=== PATIENT | female | born 1995 | race Caucasian/White ===

== ENCOUNTER → 2023-03-09 10:30 | Outpatient (CLI) | payer OTHER, SELFPAY ==
[2023-03-09 12:46] LABS: HCG Quantitative /Beta subunit 102.3 mIU/mL
== END ==
PROVIDERS: Referring Provider Obstetrics & Gynecology; Visit Provider Obstetrics & Gynecology
DX: O26.859 Spotting complicating pregnancy, unspecified trimester (principal); Z3A.00 Weeks of gestation of pregnancy not specified
CPT/HCPCS: 36415; 84702

== ENCOUNTER → 2023-03-11 10:11 | Outpatient (CLI) | payer OTHER, SELFPAY ==
[2023-03-11 11:57] LABS: HCG Quantitative /Beta subunit 40.7 mIU/mL
== END ==
PROVIDERS: Referring Provider Obstetrics & Gynecology; Visit Provider Obstetrics & Gynecology
DX: O26.859 Spotting complicating pregnancy, unspecified trimester (principal); Z3A.00 Weeks of gestation of pregnancy not specified
CPT/HCPCS: 36415; 84702

== ENCOUNTER → 2023-04-24 09:26 | Outpatient (CLI) | payer OTHER, SELFPAY ==
[2023-04-24 11:07] LABS: Progesterone, Total 2.01 ng/mL
[2023-04-24 11:10] LABS: Free T4, Direct Thyroxine 1.43 ng/dL (0.78-2.19)
[2023-04-24 11:24] LABS: Thyroid Stimulating Hormone 0.849 uIU/mL (0.47-4.68)
[2023-04-28 07:26] LABS: Dilute Russell Viper Venom 39.2 sec (0.0-47.0); Lupus Reflex Interpretation Comment: (.); PTT-LA 42.3 sec (0.0-43.5)
[2023-05-13 14:13] LABS: Cardiolipin IgA Negative (.)
== END ==
PROVIDERS: Referring Provider Obstetrics & Gynecology; Visit Provider Obstetrics & Gynecology
DX: N96 Recurrent pregnancy loss (principal)
CPT/HCPCS: 36415; 81240; 81241; 83520; 84144; 84439; 84443; 85598; 85613; 86147; 86148

== ENCOUNTER 2023-07-07 09:13 | Emergency (ER) | payer OTHER, SELFPAY ==
[2023-07-07 09:22] VITALS: BP 114/73; PULSE 72; RESP 14; TEMP 36.5; O2SAT 99; BMI 29.0
[2023-07-07 09:47] LABS: Add Manual Diff / Slide Review NO; Basophils Absolute Auto 0 /uL (0-100); Basophils Percent Auto 0.3 % (0-2); Eosinophils Absolute Auto 200 /uL (0-450); Eosinophils Percent Auto 2.5 % (2-4); Hematocrit 38.8 % (36-46); Hemoglobin 13.5 g/dL (12.0-16.0); Lymphocytes Absolute Auto 1500 /uL (1100-4500); Lymphocytes Percent Auto 16.6 % (25-40); Mean Corpuscular HGB Conc 34.7 % (30-36); Mean Corpuscular Hemoglobin 29.7 PG (26-34); Mean Corpuscular Volume 85.8 fL (80-100); Monocytes Absolute Auto 500 /uL (0-900); Monocytes Percent Auto 5.6 % (3-14); Neutrophils Absolute Auto 6900 /uL (1500-7000); Platelet Count 263 X10^3/uL (150-400); Red Blood Cell Count 4.53 X10^6/uL (4.0-5.2); Red Cell Distribution Width 13.5 % (11.6-14.8); White Blood Cell Count 9.3 X10^3/uL (4.5-11.0)
[2023-07-07] MEDS: SODIUM CHLORIDE 0.9% 1,000 ML 1000 ML IV ×2 (09:49→10:35)
[2023-07-07 09:53] LABS: Alanine Aminotransferase 42 IU/L (<35); Albumin 4.2 g/dL (3.5-5.0); Albumin Globulin Ratio 1.3 (1.0-2.8); Alkaline Phosphatase 71 U/L (38-126); Aspartate Aminotransferase 32 IU/L (14-36); BUN Creatinine Ratio 13.4 (6-22); Bilirubin Total 0.9 mg/dL (0.2-1.3); Blood Urea Nitrogen 9 mg/dL (7-17); Calcium 8.9 mg/dL (8.4-10.2); Carbon Dioxide 22 mmol/L (22-32); Chloride 104 mmol/L (98-107); Estimated Glomerular Filt Rate > 60 mL/min (>60); Globulin 3.3 g/dL (1.7-4.1); Glucose 89 mg/dL (70-100); HEMOLYSIS 28 (0-50); Lipase 53 U/L (23-300); Sodium 135 mmol/L (137-145); Total Protein 7.5 g/dL (6.3-8.2)
[2023-07-07] MEDS: ONDANSETRON 4 MG/2 ML INJ IV (09:59)
[2023-07-07 11:30] LABS: Urine Volume 10mL (spun)
[2023-07-07 11:32] LABS: Bacteria Urine None Seen; Culture Indicated Urine Specimen Cultured; Mucus Urine 3+ (Negative); RBC Urine None Seen (0-5/HPF); Squamous Epithelial Cell Urine 5-10 /HPF (0-5/HPF); WBC Urine 1-5/HPF (0-5/HPF)
--- NOTE | 2023-07-07 11:43 | ED_ITS ---
HPI - Nausea/Vomiting/Diarrhea <Cher Bolaños PA-C - Last Filed: 07/07/23 11:49> General Chief complaint: Nausea/Vomiting/Diarrhea Stated complaint: 8.5 weeks/states needs fluids Time Seen by Provider: 07/07/23 09:40 Source: patient Mode of arrival: Ambulatory History of Present Illness HPI Narrative: 27-year-old G4, P1 female presents to the ED with persistent vomiting and unable to keep down fluids during . Patient is 8 weeks , unable to keep down any fluids or solids due to the nausea and vomiting. Patient also endorses some lightheadedness. She is being managed by OBGYN Dr. Rojas who is aware of the hyperemesis. Patient has been taking Unisom, B6, Reglan, promethazine at home with minimal relief. Patient was able to dock with Dr. Rojas's office today while in the ED, and Dr. Rojas recommends trialing rectal suppositories of promethazine. Patient denies fever, chills, chest pain, shortness of breath, vaginal bleeding, vaginal discharge, abdominal pain, dysuria, pelvic cramping, dizziness, syncope. Related Data Home Medications Medication Instructions Recorded Confirmed vits [id number] fum tab PO DAILY 04/07/23 06/29/23 28 mg iron-folic acid 800 mcg tablet (Classic ) Previous Rx's Medication Instructions Recorded ondansetron 4 mg disintegrating 4 mg PO Q8H PRN nausea and 06/29/23 tablet vomiting #20 tabs promethazine 12.5 mg tablet 12.5 mg PO Q6H PRN nausea and 06/29/23 vomiting #20 tabs progesterone micronized 200 mg 200 mg PO BEDTIME #30 caps 07/01/23 capsule (Prometrium) promethazine 12.5 mg rectal 12.5 mg ME Q6H PRN nausea and 07/07/23 suppository vomiting #12 ea Allergies Allergy/AdvReac Type Severity Reaction Status Date / Time No Known Drug Allergies Allergy Verified 07/07/23 09:26 Review of Systems <Cher Bolaños PA-C - Last Filed: 07/07/23 11:49> Constitutional Constitutional: Denies chills, Denies fatigue, Denies fever(s), Denies frequent falls, Denies lethargy and Denies weakness Eyes Eyes: Denies change in vision, Denies eye discharge, Denies irritation and Denies loss of vision ENT Ears, Nose, Mouth, and Throat: Denies change in voice, Denies dizziness, Denies neck pain, Denies sore throat and Denies throat swelling Cardiovascular Cardiovascular: Denies chest pain, Denies irregular heart rhythm, Reports lightheadedness, Denies palpitations, Denies dyspnea, Denies dyspnea on exertion and Denies orthopnea Respiratory Respiratory: Denies cough, Denies dyspnea, Denies dyspnea on exertion and Denies wheezing Gastrointestinal Gastrointestinal: Denies abdominal pain, Denies change in bowel habits, Denies diarrhea, Reports nausea and Reports vomiting Musculoskeletal Musculoskeletal: Denies neck pain and Denies numbness Integumentary/Breasts Skin/Breast: Denies pruritus, Denies erythema, Denies rash and Denies wounds Neurologic Neurologic: Denies behavioral changes, Denies confusion, Denies dizziness, Denies frequent falls, Denies loss of vision, Denies numbness and Denies weakness Psychiatric Psychiatric: Denies anxiety, Denies behavioral changes, Denies confusion, Denies depression, Denies homicidal ideation and Denies suicidal ideation Endocrine Endocrine: Denies fatigue, Denies flushing and Denies palpitations Hematologic/Lymphatic Hematologic/Lymphatic: Denies easy bruising Allergic/Immunologic Allergic/Immunologic: Denies urticaria, Denies throat swelling and Denies wheezing Patient History <Cher Bolaños PA-C - Last Filed: 07/07/23 11:49> Medical History (Updated 07/07/23 @ 11:42 by Cher Bolaños PA-C) Anxiety Arm injury Arm fracture, left (~2019) Interstitial cystitis Hyperemesis gravidarum Ovarian cyst Surgical History (Updated 06/29/23 @ 10:09 by Diane Ceja, RN) History of cystoscopy History of skin surgery [place] teeth extracted Family History (Updated 06/29/23 @ 10:15 by Diane Ceja, RN) Grandmother Lung cancer Grandfather Lung cancer Aunt Colorectal cancer Aunt Congenital heart anomaly Multiple organ failure Family/Other Oral cancer Family/Other Diabetes mellitus Family/Other Hypertension Anxiety Mother Hypothyroidism Uterine fibroid Grandmother Hypothyroidism Uterine fibroid Grandfather Alcoholism Skin cancer Family/Other Thyroid cancer Hyperthyroidism Social History marital status: number of children: 1 household members: spouse and children lives independently: Yes caregiver/support person: Yes housing: house pets and animals: Yes (dogs) education level: college (bachelor's) occupational status: employed (works from home) current occupational exposures/hazards: No special papa needs: No travel history: over 6 months ago seatbelt use: always water heater temp set < 120 deg: Yes working smoke detector in home: Yes fire extinguisher in home: No carbon monox detector in home: Yes firearms in home: No do you feel safe at home: Yes Smoking Status: Never smoker second hand exposure: No alcohol intake: former (occasionally when not ) substance use type: marijuana (in college, not recently) during the past year weight has: other (weight has fluctuated a lot since 1st ) well-balanced diet: daily or most days daily servings fruits/ve or more times/day caffeine: Yes (12 oz drip coffee in AM (not since 1st trimester N/V has started)) Type(s) of exercise: walking, aerobic and yoga Smoking Status: Never smoker Substance Use Type: does not use Exam <Cher Bolaños PA-C - Last Filed: 07/07/23 11:49> Narrative Exam Narrative: Const General:?cooperative, healthy appearing and comfortable [facility] Head:?normal to inspection Ears:?hearing grossly normal bilaterally Nose:?external nose normal Face and sinus:?normal facial exam and sinuses nontender Mouth:?oral mucosae normal Throat:?posterior oropharynx normal Eyes General:?appearance normal, both eyes and all related structures Neck Neck:?normal visual inspection and no lymphadenopathy noted Resp Effort & Inspection:?normal respiratory effort Auscultation:?clear to auscultation bilaterally Cardio Rate:?regular rate Rhythm:?regular rhythm Neuro General:?patient alert, patient awake and patient oriented x3 Initial Vital Signs Initial Vital Signs: Vital Signs Temperature 97.7 F 07/07/23 09:22 Pulse Rate 72 07/07/23 09:22 Respiratory Rate 14 07/07/23 09:22 Blood Pressure 114/73 07/07/23 09:22 Pulse Oximetry 99 07/07/23 09:22 Oxygen Delivery Method Room Air 07/07/23 09:22 <Vinay Mcdaniel MD - Last Filed: 07/07/23 19:22> Initial Vital Signs Initial Vital Signs: Vital Signs Temperature 97.7 F 07/07/23 09:22 Pulse Rate 72 07/07/23 09:22 Respiratory Rate 14 07/07/23 09:22 Blood Pressure 114/73 07/07/23 09:22 Pulse Oximetry 99 07/07/23 09:22 Oxygen Delivery Method Room Air 07/07/23 09:22 Course <Cher Bolaños PA-C - Last Filed: 07/07/23 11:49> Orders Ordered: ED Orders 07/07/23 11:28 Urine Culture Stat Urine Microscopic Stat Discontinued Medications Sodium Chloride (Normal Saline 0.9%) 1,000 mls @ 1,000 mls/hr IV BOLUS ONE Stop: 07/07/23 10:37 Last Infusion: 07/07/23 10:34 Dose: Infused Documented By: Admin: 07/07/23 09:49 Dose: 1,000 mls/hr Documented By: REMIGIO Sodium Chloride (Normal Saline 0.9%) 1,000 mls @ 1,000 mls/hr IV BOLUS ONE Stop: 07/07/23 11:31 Last Infusion: 07/07/23 11:13 Dose: Infused Documented By: Admin: 07/07/23 10:35 Dose: 1,000 mls/hr Documented By: WAGNER Ondansetron HCl (Ondansetron 4 Mg/2 Ml Inj) 4 mg IV NOW PRN PRN Reason: Nausea And Vomiting Last Admin: 07/07/23 09:59 Dose: 4 mg Documented By: WAGNER Vital Signs Vital signs: Vital Signs - 8 hr 07/07/23 11:50 Pulse Rate 59 L Respiratory Rate 14 Blood Pressure 117/62 <Vinay Mcdaniel MD - Last Filed: 07/07/23 19:22> Orders Ordered: ED Orders 07/07/23 11:28 Urine Culture Stat Urine Microscopic Stat Discontinued Medications Sodium Chloride (Normal Saline 0.9%) 1,000 mls @ 1,000 mls/hr IV BOLUS ONE Stop: 07/07/23 10:37 Last Infusion: 07/07/23 10:34 Dose: Infused Documented By: Admin: 07/07/23 09:49 Dose: 1,000 mls/hr Documented By: REMIGIO Sodium Chloride (Normal Saline 0.9%) 1,000 mls @ 1,000 mls/hr IV BOLUS ONE Stop: 07/07/23 11:31 Last Infusion: 07/07/23 11:13 Dose: Infused Documented By: Admin: 07/07/23 10:35 Dose: 1,000 mls/hr Documented By: WAGNER Ondansetron HCl (Ondansetron 4 Mg/2 Ml Inj) 4 mg IV NOW PRN PRN Reason: Nausea And Vomiting Last Admin: 07/07/23 09:59 Dose: 4 mg Documented By: WAGNER Vital Signs Vital signs: Vital Signs - 8 hr 07/07/23 11:50 Pulse Rate 59 L Respiratory Rate 14 Blood Pressure 117/62 MDM - Nausea/Vomiting/Diarrhea <Cher Bolaños PA-C - Last Filed: 07/07/23 11:49> Lab Data 07/07/23 09:30 07/07/23 09:30 Labs: Lab Results 07/07/23 07/07/23 Range/Units 09:30 11:28 WBC 9.3 (4.5-11.0) X10^3/uL RBC 4.53 (4.0-5.2) X10^6/uL Hgb 13.5 (12.0-16.0) g/dL Hct 38.8 (36-46) % MCV 85.8 (80-100) fL MCH 29.7 (26-34) PG MCHC 34.7 (30-36) % RDW 13.5 (11.6-14.8) % Plt Count 263 (150-400) X10^3/uL Neut % (Auto) 75.0 (50-75) % Lymph % (Auto) 16.6 L (25-40) % [place] % (Auto) 5.6 (3-14) % Eos % (Auto) 2.5 (2-4) % Baso % (Auto) 0.3 (0-2) % Neut # (Auto) 6900 (7083-4996) /uL Lymph # (Auto) 1500 (7636-8931) /uL [place] # (Auto) 500 (0-900) /uL Eos # (Auto) 200 (0-450) /uL Baso # (Auto) 0 (0-100) /uL Sodium 135 L (137-145) mmol/L Potassium 4.0 (3.4-5.1) mmol/L Chloride 104 (98-107) mmol/L Carbon Dioxide 22 (22-32) mmol/L BUN 9 (7-17) mg/dL Creatinine 0.67 (0.52-1.04) mg/dL Estimated GFR > 60 (>60) mL/min BUN/Creatinine Ratio 13.4 (6-22) Glucose 89 (70-100) mg/dL Calcium 8.9 (8.4-10.2) mg/dL Total Bilirubin 0.9 (0.2-1.3) mg/dL AST 32 (14-36) IU/L ALT 42 H (<35) IU/L Alkaline Phosphatase 71 (38-126) U/L Total Protein 7.5 (6.3-8.2) g/dL Albumin 4.2 (3.5-5.0) g/dL Globulin 3.3 (1.7-4.1) g/dL Albumin/Globulin Ratio 1.3 (1.0-2.8) Lipase 53 (23-300) U/L Urine RBC None seen (0-5/HPF) Urine WBC 1-5/hpf (0-5/HPF) Ur Squamous Epith Cells 5-10 /hpf H (0-5/HPF) Urine Bacteria None seen (None) Urine Mucus 3+ H (Negative) Ur Culture Indicated? Specimen cultured Vol Urine Centrifuged 10ml (spun) Urine Dip Bedside Urine Glucose Negative Bedside Urine Bilirubin - Negative Bedside Urine Ketone ++ 40 Urine Specific Mcnabb 1.025 Bedside Urine Occult Blood - Negative Bedside Urine pH 6.0 Bedside Urine Protein + 30 Bedside Urine Urobilinogen - Negative Bedside Urine Nitrite - Negative Bedside Urine Leukocytes +/- 15 Esterase MDM Narrative Medical decision making narrative: 27-year-old G4, P1 female presents to the ED with persistent vomiting and unable to keep down fluids during . Concern for hyperemesis gravidarum. Patient was given 2 L of IV fluids, Zofran. Patient was p.o. challenged successfully with ice chips. Patient was able to talk with Dr. Rojas's office, they will be prescribing promethazine rectal suppositories. Patient has good follow-up and Dr. Rojas is aware of her ED visit today. Labs within normal limits, urine without UTI. ED return precautions discussed with patient. Patient verbalized understanding. Medical records reviewed: Yes <Vinay Mcdaniel MD - Last Filed: 07/07/23 19:22> Lab Data Labs: Lab Results 07/07/23 07/07/23 Range/Units 09:30 11:28 WBC 9.3 (4.5-11.0) X10^3/uL RBC 4.53 (4.0-5.2) X10^6/uL Hgb 13.5 (12.0-16.0) g/dL Hct 38.8 (36-46) % MCV 85.8 (80-100) fL MCH 29.7 (26-34) PG MCHC 34.7 (30-36) % RDW 13.5 (11.6-14.8) % Plt Count 263 (150-400) X10^3/uL Neut % (Auto) 75.0 (50-75) % Lymph % (Auto) 16.6 L (25-40) % [place] % (Auto) 5.6 (3-14) % Eos % (Auto) 2.5 (2-4) % Baso % (Auto) 0.3 (0-2) % Neut # (Auto) 6900 (9592-7950) /uL Lymph # (Auto) 1500 (1272-7802) /uL [place] # (Auto) 500 (0-900) /uL Eos # (Auto) 200 (0-450) /uL Baso # (Auto) 0 (0-100) /uL Sodium 135 L (137-145) mmol/L Potassium 4.0 (3.4-5.1) mmol/L Chloride 104 (98-107) mmol/L Carbon Dioxide 22 (22-32) mmol/L BUN 9 (7-17) mg/dL Creatinine 0.67 (0.52-1.04) mg/dL Estimated GFR > 60 (>60) mL/min BUN/Creatinine Ratio 13.4 (6-22) Glucose 89 (70-100) mg/dL Calcium 8.9 (8.4-10.2) mg/dL Total Bilirubin 0.9 (0.2-1.3) mg/dL AST 32 (14-36) IU/L ALT 42 H (<35) IU/L Alkaline Phosphatase 71 (38-126) U/L Total Protein 7.5 (6.3-8.2) g/dL Albumin 4.2 (3.5-5.0) g/dL Globulin 3.3 (1.7-4.1) g/dL Albumin/Globulin Ratio 1.3 (1.0-2.8) Lipase 53 (23-300) U/L Urine RBC None seen (0-5/HPF) Urine WBC 1-5/hpf (0-5/HPF) Ur Squamous Epith Cells 5-10 /hpf H (0-5/HPF) Urine Bacteria None seen (None) Urine Mucus 3+ H (Negative) Ur Culture Indicated? Specimen cultured Vol Urine Centrifuged 10ml (spun) Urine Dip Bedside Urine Glucose Negative Bedside Urine Bilirubin - Negative Bedside Urine Ketone ++ 40 Urine Specific [place] 1.025 Bedside Urine Occult Blood - Negative Bedside Urine pH 6.0 Bedside Urine Protein + 30 Bedside Urine Urobilinogen - Negative Bedside Urine Nitrite - Negative Bedside Urine Leukocytes +/- 15 Esterase Discharge Plan Departure Patient Disposition: Home Clinical Impression: Hyperemesis gravidarum Instructions: DI for Hyperemesis Gravidarum Activity Restrictions/Additional Instructions: You were evaluated in the ED today for nausea and vomiting during . You were given 2 L of IV fluids and Reglan with good relief. You were able to keep down some ice chips and water. It appears that Dr. Rojas is also prescribing some rectal suppositories of promethazine for you to try at home. Please take the antinausea medications as prescribed by Dr. Rojas. Return to the ED if you are persistently vomiting and unable to keep down fluids despite taking the medications. Prescriptions: No Action progesterone micronized [Prometrium] 200 mg capsule 200 mg PO BEDTIME Qty: 30 4RF Rx Instructions: Take one capsule from ovulation on until starts next period or through 10 wks of promethazine 12.5 mg suppository 12.5 mg ME Q6H PRN (Reason: nausea and vomiting) Qty: 12 3RF Classic 28 mg iron- 800 mcg tablet PO DAILY ondansetron 4 mg tablet,disintegrating 4 mg PO Q8H PRN (Reason: nausea and vomiting) Qty: 20 1RF promethazine 12.5 mg tablet 12.5 mg PO Q6H PRN (Reason: nausea and vomiting) Qty: 20 1RF Referrals: Miscellaneous,Doctor, [Primary Care Provider] - Stand Alone Forms: Patient Portal/API ED Sign-out <Vinay Mcdaniel MD - Last Filed: 07/07/23 19:22> Cosign ED Attending Cosignature Attestation: I was immediately available in the department for consultation. Documentation has been reviewed. I agree with assessment and plan.
[2023-07-07 11:50] VITALS: BP 117/62; PULSE 59; RESP 14
--- NOTE | 2023-07-07 11:50 | PC.NURSE ---
tolerating water. denies nausea
== END 2023-07-07 11:51 | disposition home or self-care (01) ==
PROVIDERS: Emergency Medicine; Emergency Provider Student in an Organized Health Care Education/Training Program
DX: O21.0 Mild hyperemesis gravidarum (principal); Z3A.08 8 weeks gestation of pregnancy
CPT/HCPCS: 36415; 80053; 81003; 81015; 83690; 85025; 87086; 96361; 96374; 99284; J2405

== ENCOUNTER → 2023-07-13 14:15 | Outpatient (CLI) | payer OTHER, SELFPAY ==
[2023-07-13 21:15] LABS: Urine N gonorrhoeae NOT DETECTED
[2023-07-13 21:22] LABS: Urine Chlamydia NOT DETECTED
== END ==
PROVIDERS: Visit Provider Obstetrics & Gynecology
DX: Z34.81 Encounter for supervision of other normal pregnancy, first trimester (principal); Z3A.09 9 weeks gestation of pregnancy
CPT/HCPCS: 87491; 87591

== ENCOUNTER → 2023-07-17 08:37 | Outpatient (CLI) | payer OTHER, SELFPAY ==
[2023-07-17 09:16] LABS: Add Manual Diff / Slide Review NO; Basophils Absolute Auto 100 /uL (0-100); Basophils Percent Auto 0.6 % (0-2); Eosinophils Absolute Auto 200 /uL (0-450); Eosinophils Percent Auto 2.1 % (2-4); Hematocrit 40.1 % (36-46); Hemoglobin 13.9 g/dL (12.0-16.0); Lymphocytes Absolute Auto 1300 /uL (1100-4500); Lymphocytes Percent Auto 12.8 % (25-40); Mean Corpuscular HGB Conc 34.5 % (30-36); Mean Corpuscular Hemoglobin 29.9 PG (26-34); Mean Corpuscular Volume 86.6 fL (80-100); Monocytes Absolute Auto 500 /uL (0-900); Monocytes Percent Auto 4.9 % (3-14); Neutrophils Absolute Auto 7900 /uL (1500-7000); Neutrophils Percent Auto 79.6 % (50-75); Platelet Count 294 X10^3/uL (150-400); Red Blood Cell Count 4.64 X10^6/uL (4.0-5.2); Red Cell Distribution Width 13.2 % (11.6-14.8); White Blood Cell Count 9.9 X10^3/uL (4.5-11.0)
[2023-07-17 10:09] LABS: Hepatitis B Surface Antigen NEGATIVE s/c (NEGATIVE); Rubella Antibody IgG 67.8 IU/mL (>15)
[2023-07-17 10:25] LABS: HIV 1 & 2 Ab/Ag 4th Gen Combo NEGATIVE (NEGATIVE); Hep C Virus Ab w/Reflex Quant NEGATIVE s/c (NEGATIVE)
[2023-07-18 14:19] LABS: Varicella IgG Antibody 327 index (Immune >165)
[2023-07-21 08:53] LABS: RPR Screen Non Reactive (Non Reactive)
== END ==
PROVIDERS: Specialist; Referring Provider Obstetrics & Gynecology; Visit Provider Obstetrics & Gynecology
DX: Z34.81 Encounter for supervision of other normal pregnancy, first trimester (principal)
CPT/HCPCS: 80055; 86787; 86803; 86850; 86900; 86901; 87086; 87389

== ENCOUNTER → 2023-09-18 08:40 | Outpatient (CLI) | payer OTHER, SELFPAY | PROVIDERS: Referring Provider Specialist; Visit Provider Specialist | DX: Z34.82 Encounter for supervision of other normal pregnancy, second trimester (principal); Z3A.17 17 weeks gestation of pregnancy | CPT/HCPCS: 36415; 82105 ==

== ENCOUNTER → 2023-09-29 10:19 | Outpatient (CLI) | payer OTHER, SELFPAY ==
--- NOTE | 2023-09-29 10:19 | DI.US.S_ITS ---
PROCEDURE: US OB >= 14 WEEKS FETUS INDICATIONS: 20 Week Anatomy Scan OUTSIDE/PRIOR DATING DATA: Last menstrual period (LMP): 05/08/2023. LMP-based estimated date of delivery (ALLYSON): 02/12/2024. First dating scan (date and location): 5720. Estimated date of delivery (ALLYSON) from first dating scan: 02/08/2024. The calculations are made using the ultrasound ALLYSON of 02/08/2024. TECHNIQUE: Real-time scanning was performed of the fetus, with image documentation and biometric measurements. COMPARISON: [facility], , US OB <= 14 WEEKS FETUS, 08/12/2023, 10:26. [facility], , US OB <= 14 WEEKS FETUS, 07/13/2023, 14:37. [facility], , US OB <= 14 WEEKS FETUS, 06/29/2023, 8:21. [facility], , US OB <= 14 WEEKS FETUS, 06/19/2023, 9:32. FINDINGS: General: A single living intrauterine gestation is present. Presentation: Vertex. Placenta: Placental position is anterior , without previa. Amniotic fluid index: 14.9 cm, normal range is 5-24 cm. Single deepest vertical pocket is 5.1 cm. heart rate: 141 beats per minute. Maternal cervical canal: 3.9 cm long. Normal lower limit is 2.5 cm. biometrics: Biparietal diameter: 4.8 cm 20 weeks 4 days Head circumference: 18.1 cm 20 weeks 4 days Abdominal circumference: 17.1 cm 22 weeks 0 days Femur length: 3.6 cm 21 weeks 3 days Clinically estimated gestational age: 20 weeks 4 days Composite gestational age from present scan: 21 weeks 1 day Estimated weight and percentile: 135 g 92nd percentile Anatomic survey: Neuro: Ventricles are non-dilated at less than 10 mm. Cisterna magna is normal at 3-11 mm. Cerebellum is normal in size and morphology. Nuchal skin fold: Normal at less than 6 mm between 14-21 weeks gestational age. Face: Nose and lips, facial profile are normal. Spine: No evidence for spina bifida. Heart: 4-chambered heart is present, with normal ventricular outflow tracts. Diaphragm: Diaphragm is intact. Stomach: Left-sided stomach is present. Kidneys: No hydronephrosis. Normal is less than 5 mm in 2nd trimester, less than 7 mm in 3rd trimester. Cord: 3-vessel cord has orthotopic insertion. Bladder: Normal in size. Extremities: All 4 extremities identified. IMPRESSION: Single live intrauterine with gestational age today of 21 weeks 1 day. weight is at the 92nd percentile. Anatomy is within normal limits. We strive to produce accurate, complete, and clear reports of imaging services. To assist us in improving patient care, this report was composed using standard report templates and voice recognition software. Therefore, it may contain abnormal punctuation, insertions and/or omissions. Occasional wrong-word or sound-alike substitutions may occur. Though we review the report and make efforts to correct it, we do recommend that the report be read carefully in proper context to recognize any text inaccuracies. Dictated by: Lita Quintana M.D. on 09/29/2023 at 12:40 Approved by: Lita Quintana M.D. on 09/29/2023 at 12:46
== END ==
LOC: US 10:19
PROVIDERS: Referring Provider Family Medicine; Visit Provider Family Medicine
DX: Z34.82 Encounter for supervision of other normal pregnancy, second trimester (principal); Z3A.21 21 weeks gestation of pregnancy
CPT/HCPCS: 76811

== ENCOUNTER → 2023-11-05 07:00 | Outpatient (CLI) | payer OTHER, SELFPAY ==
[2023-11-05 09:57] LABS: Hematocrit 34.2 % (36-46)
[2023-11-05 10:40] LABS: GTT (PREG) 1 Hour PP 50gm Dose 120 mg/dL (76-139)
== END ==
LOC: LAB 07:00
PROVIDERS: Referring Provider Obstetrics & Gynecology; Visit Provider Obstetrics & Gynecology
DX: Z34.82 Encounter for supervision of other normal pregnancy, second trimester (principal); Z3A.26 26 weeks gestation of pregnancy
CPT/HCPCS: 36415; 82950; 85014; 85018

== ENCOUNTER → 2024-01-20 10:19 | Outpatient (CLI) | payer OTHER, SELFPAY ==
[2024-01-21 10:07] LABS: Strep Grp B PCR POS for Grp B Strep
== END ==
PROVIDERS: Visit Provider Obstetrics & Gynecology
DX: Z34.83 Encounter for supervision of other normal pregnancy, third trimester (principal); Z3A.36 36 weeks gestation of pregnancy
CPT/HCPCS: 87653

== ENCOUNTER 2024-01-29 20:42 | Outpatient (CLI) | payer OTHER, SELFPAY | END 2024-01-29 21:40 | disposition home or self-care (01) | LOC: OB 02-01 06:38 | PROVIDERS: Referring Provider Obstetrics & Gynecology; Visit Provider Obstetrics & Gynecology | DX: O47.1 False labor at or after 37 completed weeks of gestation (principal); Z3A.38 38 weeks gestation of pregnancy | CPT/HCPCS: 59025; G0378; G0379 ==

== ENCOUNTER 2024-01-30 14:44 | Inpatient (IN) | payer OTHER, SELFPAY ==
[2024-01-30 17:16] VITALS: BP 123/61
[2024-01-30] MEDS: LACTATED RINGERS 1,000 ML 100 ML IV ×3 (17:18→20:24)
[2024-01-30] MEDS: AMPICILLIN 2,000 MG in SODIUM CHLORIDE 0.9% 100 ML 200 MG IV (17:38)
[2024-01-30 17:49] LABS: Add Manual Diff / Slide Review YES; Hematocrit 35.3 % (36-46); Hemoglobin 12.1 g/dL (12.0-16.0); Mean Corpuscular HGB Conc 34.3 % (30-36); Mean Corpuscular Hemoglobin 30.3 PG (26-34); Mean Corpuscular Volume 88.5 fL (80-100); Platelet Count 224 X10^3/uL (150-400); Red Blood Cell Count 3.98 X10^6/uL (4.0-5.2); Red Cell Distribution Width 13.8 % (11.6-14.8); White Blood Cell Count 27.5 X10^3/uL (4.5-11.0)
[2024-01-30 17:53] LABS: Alanine Aminotransferase 16 IU/L (<35); Albumin 3.5 g/dL (3.5-5.0); Albumin Globulin Ratio 1.2 (1.0-2.8); Alkaline Phosphatase 153 U/L (38-126); Aspartate Aminotransferase 22 IU/L (14-36); BUN Creatinine Ratio 6.2 (6-22); Blood Urea Nitrogen 4 mg/dL (7-17); Calcium 9.1 mg/dL (8.4-10.2); Carbon Dioxide 19 mmol/L (22-32); Chloride 103 mmol/L (98-107); Estimated Glomerular Filt Rate > 60 mL/min (>60); Glucose 97 mg/dL (70-100); HEMOLYSIS < 15 (0-50); Potassium 3.6 mmol/L (3.4-5.1); Sodium 131 mmol/L (137-145); Total Protein 6.5 g/dL (6.3-8.2)
[2024-01-30 18:13] LABS: Neutrophils Absolute Manual 24750 /uL (3000-5900); RBC Morphology Normal Morphology; Total Cells Counted 100
--- NOTE | 2024-01-30 20:18 | PM.AN.REGBLK ---
Regional Block Pre-procedure Procedure: Continuous Lumbar Epidural for L&D Attending OB provider: Esperanza Rojas PMH/ROS narrative: , spontaneous labor. ROS neg with exception of GERd with this PSH/Anesthesia history narrative: Epidural with last delivery, worked well. Exam narrative: Mall 1, good dentition, ASA Class: II Labs: Hct 35.3 % (36-46) L 01/30/24 17:16 Plt Count 224 X10^3/uL (150-400) 01/30/24 17:16 Medications: Current Medications Generic Name Dose Route Start Last Admin Trade Name Freq PRN Reason Stop Dose Admin Calcium Carbonate 1,000 mg 01/30/24 17:18 Calcium Carbonate 500 Mg Tab PO Q2HR PRN Dyspepsia Carboprost Tromethamine 250 mcg 01/30/24 17:18 Carboprost 250 Mcg/Ml Ampul IM Q90M PRN Bleeding Fentanyl 50 mcg 01/30/24 17:18 Fentanyl 100 Mcg/2 Ml Inj IV Q1H PRN Pain, Moderate (4-6) Lactated Ringer's 1,000 mls @ 100 mls/hr 01/30/24 17:30 01/30/24 19:09 Lactated Ringers IV 01/31/24 03:29 100 mls/hr CONT BRENDAN Administration Oxytocin/Lactated Ringer's 30 unit in 500 mls @ 200 mls/hr 01/30/24 17:18 Oxytocin Premix IV CONT PRN Bleeding Protocol Tranexamic Acid 1,000 mg/ 100 mls @ 600 mls/hr 01/30/24 17:18 Sodium Chloride IV NOW PRN Bleeding Ampicillin Sodium 1,000 mg/ 100 mls @ 200 mls/hr 01/30/24 21:00 Sodium Chloride IV Q4H BRENDAN Lidocaine HCl 20 ml 01/30/24 17:18 Lidocaine 1% 20 Ml INJ INTRA-OP PRN Post Delivery Methylergonovine Maleate 0.2 mg 01/30/24 17:18 Methylergonovine 0.2 Mg Tablet PO Q6HR PRN Heavy Bleeding Methylergonovine Maleate 0.2 mg 01/30/24 17:18 Methylergonovine 0.2 Mg/Ml Vial IM NOW PRN Bleeding Mineral Oil 30 ml 01/30/24 17:18 Mineral Oil 30 Ml Udc TOP PRN PRN Version Misoprostol 800 mcg 01/30/24 17:18 Misoprostol 200 Mcg Tablet VA NOW PRN Bleeding Misoprostol 400 mcg 01/30/24 17:18 Misoprostol 200 Mcg Tablet SL NOW PRN Bleeding Naloxone HCl 0.2 mg 01/30/24 17:18 Naloxone 0.4 Mg/Ml Vial IV Q2MIN PRN Opiate Reversal Ondansetron HCl 4 mg 01/30/24 17:18 Ondansetron 4 Mg/2 Ml Inj IV Q4HR PRN Nausea And Vomiting Oxytocin 10 unit 01/30/24 17:18 Oxytocin 10 Unit/Ml Vial IM NOW PRN Bleeding Allergies: Allergies Allergy/AdvReac Type Severity Reaction Status Date / Time No Known Drug Allergies Allergy Verified 01/27/24 08:20 Procedure Insertion date: 01/30/24 Insertion time: 19:10 Prep/Local: 1% lidocaine Interspace: L4-5 Patient position: sitting Needle: 17 gauge Tuohy Loss of resistance with: saline EMILY at (cm): 6 Catheter placed at SKIN (cm): 13 Catheter in SPACE (cm): 7 Sensory level: T10 Insertion: No CSF, No Blood, No Paresthesia with insertion, No Paresthesia with injection and No Test dose reaction Initial Medications TEST DOSE time: 19:24 BOLUS DOSE time: 19:32 BOLUS DOSE (mL): 5 BOLUS DOSE med: other Infusion INFUSION: 0.125% bupivacaine and with fentanyl 2 mcg/mL Initial rate (mL/hr): 12 Post-procedure Anesthesia date START: 01/30/24 Anesthesia time START: 19:10 Anesthesia date END: 01/31/24 Anesthesia time END: 05:52 Post-procedure Anesthesia Assessment: Yes CV function: HR/BP stable, Yes Resp function: RR/sat/airway adequate, Yes Post-op hydration adequate, Yes Pain control adequate, Yes Nausea & vomiting absent, Yes Temperature > 36 C, Yes Mental status appropriate and Yes Anesthesia complications
[2024-01-30] MEDS: ePHEDrine 50 MG/ML VIAL IV ×2 (20:47→22:18)
[2024-01-30] MEDS: AMPICILLIN 1,000 MG in SODIUM CHLORIDE 0.9% 100 ML 200 MG IV (21:10)
[2024-01-30] MEDS: ACETAMINOPHEN IV 1,000 MG/100 ML VIAL 400 MG IV (21:10)
[2024-01-30] MEDS: OXYTOCIN PREMIX 30 UNIT/500 ML PLAST..BAG IV (21:38)
--- NOTE | 2024-01-31 00:15 | P.HPOB_ITS ---
OB HPI Date/Time Date of admission: 01/30/24 Date Patient Seen: 01/31/24 Time Patient Seen: 00:16 History of Present Condition Chief complaint: OBS ALLYSON Calculator 2 Estimated Delivery Date Method Current WG Current Estimate 02/12/24 LMP (Certain) 38w 2d Other Estimates 02/15/24 Ultrasound #1 37w 6d 02/14/24 Ultrasound #2 38w 0d Estimated Gestational Age (weeks): 38+2 : 4 Para: 1 care: good care, initiated at week #, number of visits and pounds weight gain Dating criteria OB: LMP confirmed by 1st trimester US Ultrasounds: normal 1st trimester US and normal mid trimester US Obstetrical complications: other (Recurrent loss) Medical complications OB: none Preadmission Labs Last OB Lab Results: 2 Blood Type O Positive 01/30/24 17:16 Antibody Screen Negative 01/30/24 17:16 Hct 35.3 % (36-46) L 01/30/24 17:16 Hgb 12.1 g/dL (12.0-16.0) 01/30/24 17:16 Hep Bs Antigen Negative s/c (NEGATIVE) 07/17/23 08:54 Hepatitis C Antibody Negative s/c (NEGATIVE) 07/17/23 08:54 Rubella Antibody 67.8 IU/mL (>15) 07/17/23 08:54 VZV IgG Antibody 327 index (Immune >165) 07/17/23 08:54 Glucose 1 Hr 50 gm 120 mg/dL (76-139) 11/05/23 07:22 Group B Strep (PCR) Pos for grp b strep H 01/20/24 10:00 -: Chlamydia screen: negative, Gonorrhea screen: negative and Urine: negative -: PAP smear: Normal Genetic Screens: Cell-free DNA: Normal (normal male) and Alpha-fetoprotein: Normal External Labs -: Urine: negative Prior (ies) Past Pregnancies Del. Date GA/Weeks Labor Lgth Wt Sex Route Outcome Anesthesia Place Delv Breastfeed Preg Comp Name 01/24/20 6-7 spontaneous 12/10/21 40.1 27 8 lb 9 oz Female vaginal forceps live - full term epidural [place], [place] till going as of 06/29/23 other [place] 03/08/23 6-7 spontaneous Delivery Date: 01/24/20 Last Updated by: Diane Ceja RN passed spontaneously, no complications Delivery Date: 12/10/21 Last Updated by: Diane Ceja RN hyperemesis, anemia Delivery Date: 03/08/23 Last Updated by: Diane Ceja RN passed spontaneously, no complications Evaluation Evaluation Baseline heart rate: 135 Variability: Moderate (11-25) monitor accelerations: Present Monitor Decelerations: Absent Contraction Frequency (minutes): 5 Uterine Contraction Intensity: Moderate Status: Category l Dilation (cm): 3 Effacement (%): 75 station: -2 Position of cervix: posterior Consistency: medium [facility] Medical History (Updated 11/24/23 @ 02:14 by Esperanza Rojas MD) Anxiety Arm injury Arm fracture, left (~2019) Interstitial cystitis Hyperemesis gravidarum Ovarian cyst Surgical History (Updated 06/29/23 @ 10:09 by Diane Ceja RN) History of cystoscopy History of skin surgery [place] teeth extracted Family History (Updated 06/29/23 @ 10:15 by Diane Ceja RN) Grandmother Lung cancer Grandfather Lung cancer Aunt Colorectal cancer Aunt Congenital heart anomaly Multiple organ failure Family/Other Oral cancer Family/Other Diabetes mellitus Family/Other Hypertension Anxiety Mother Hypothyroidism Uterine fibroid Grandmother Hypothyroidism Uterine fibroid Grandfather Alcoholism Skin cancer Family/Other Thyroid cancer Hyperthyroidism Social History marital status: number of children: 1 household members: spouse and children lives independently: Yes caregiver/support person: Yes housing: house pets and animals: Yes (dogs) education level: college (bachelor's) occupational status: employed (works from home) current occupational exposures/hazards: No special papa needs: No travel history: over 6 months ago seatbelt use: always water heater temp set < 120 deg: Yes working smoke detector in home: Yes fire extinguisher in home: No carbon monox detector in home: Yes firearms in home: No do you feel safe at home: Yes Smoking Status: Never smoker second hand exposure: No alcohol intake: former (occasionally when not ) substance use type: marijuana (in college, not recently) during the past year weight has: other (weight has fluctuated a lot since 1st ) well-balanced diet: daily or most days daily servings fruits/ve or more times/day caffeine: Yes (12 oz drip coffee in AM (not since 1st trimester N/V has started)) Type(s) of exercise: walking, aerobic and yoga Meds Home Medications and Allergies Home Medications Medication Instructions Recorded Confirmed Type vits no.126-ferrous fum tab PO DAILY 04/07/23 01/27/24 History 28 mg iron-folic acid 800 mcg tablet (Classic ) ondansetron 4 mg disintegrating 4 mg PO Q8H PRN nausea and 06/29/23 01/27/24 Rx tablet vomiting #20 tabs promethazine 12.5 mg tablet 12.5 mg PO Q6H PRN nausea and 06/29/23 01/27/24 Rx vomiting #20 tabs promethazine 12.5 mg rectal 12.5 mg IA Q6H PRN nausea and 07/07/23 01/27/24 Rx suppository vomiting #12 ea metoclopramide HCl 10 mg tablet 10 mg PO Q6H PRN for 07/28/23 01/27/24 Rx nausea/vomiting #30 tabs aspirin 81 mg tablet,delayed 81 mg PO DAILY 08/12/23 01/27/24 History release (Adult Aspirin Regimen) hydrocortisone 2.5 % topical cream 1 applic IA BID-QID PRN 11/04/23 01/27/24 Rx with perineal applicator hemorrhoids #30 grams (Anusol-HC) RSVPreF3 antigen-AS01E 0.5 ml IM ONCE #1 ea 01/27/24 Rx adjuvant(PF) 120 mcg/0.5 mL IM suspension, kit Allergies Allergy/AdvReac Type Severity Reaction Status Date / Time No Known Drug Allergies Allergy Verified 01/27/24 08:20 OB Exam Narrative Exam Narrative: Generally: Patient is sitting up in bed, comfortable with epidural Lungs: Clear to auscultation bilaterally Cardiovascular: Regular rate and rhythm Fundal height: 39 cm Estimated weight: 8 lb Extremities: Trace edema Objective Labs 01/30/24 17:16 01/30/24 17:16 Labs: Laboratory Results - last 24 hr 01/30/24 17:16 WBC 27.5 H RBC 3.98 L Hgb 12.1 Hct 35.3 L MCV 88.5 MCH 30.3 MCHC 34.3 RDW 13.8 Plt Count 224 Neut % (Auto) Not Reportable Lymph % (Auto) Not Reportable [place] % (Auto) Not Reportable Eos % (Auto) Not Reportable Baso % (Auto) Not Reportable Lymph # (Auto) Not Reportable [place] # (Auto) Not Reportable Baso # (Auto) Not Reportable Total Counted 100 Seg Neutrophils % 88.0 H Band Neutrophils % 2.0 L Lymphocytes % (Manual) 3.0 L Monocytes % (Manual) 7.0 Neutrophils # (Manual) 38452 H RBC Morphology Normal morphology Sodium 131 L Potassium 3.6 Chloride 103 Carbon Dioxide 19 L BUN 4 L Creatinine 0.65 Estimated GFR > 60 BUN/Creatinine Ratio 6.2 Glucose 97 Calcium 9.1 Total Bilirubin 1.0 AST 22 ALT 16 Alkaline Phosphatase 153 H Total Protein 6.5 Albumin 3.5 Globulin 3.0 Albumin/Globulin Ratio 1.2 Blood Type O Positive Antibody Screen Negative Assessment and Plan Assessment and Plan Assessment and Plan narrative: Assessment: 28-year-old 4 para 1 at 38-,2/7 weeks gestation in early to active labor GBS positive, status post 2 doses of antibiotics Plan: AROM with copious clear amniotic fluid Expected management to spontaneous vaginal delivery Time-Based Coding :: [TOTAL MINUTES] spent with patient and on the chart (including review of chart, obtaining history, exam, reviewing outside data, placing orders, documenting exam and treatment plan, and counseling patient) on [DATE].
[2024-01-31] MEDS: AMPICILLIN 1,000 MG in SODIUM CHLORIDE 0.9% 100 ML 200 MG IV ×2 (01:22→04:52)
[2024-01-31] MEDS: FENT 2MCG/ML BUPIV 0.125% EPI 200 MCG/100 ML PLAST..BAG 10 MCG EPIDURAL (04:13)
[2024-01-31] MEDS: LACTATED RINGERS 1,000 ML 100 ML IV (04:53)
--- NOTE | 2024-01-31 06:22 | PM.OBPRVD ---
Events: Labor Augmentation Labor & Delivery Delivery date: 01/31/24 Intrapartal Events: None Cervical ripening method: none Induction method: none Delivery augmentation: rupture of membranes and pitocin Delivery monitor: external FHT and external uterine Route of delivery: Episiotomy description: None L&D Laceration Description: Perineal - 2nd Degree and Vaginal - 2nd Degree Delivery repair: vicryl and chromic Quantitative Blood Loss: 300 Anesthesia Type: Epidural Complications: None Narrative: Patient complete and pushed for 15 minutes. At 5:52 a.m., a live male delivered spontaneously in the VITA presentation, over an intact perineum. No nuchal cord. The remainder of the body delivered without difficulty and was placed on mom's abdomen. Pitocin was given in the IV fluids. After the cord stopped pulsing, the cord was double clamped and cut. Cord bloods were obtained. The placenta delivered intact with a three-vessel cord at 5:58 a.m.. Fundus was massaged to firm. A second-degree vaginal/perineal laceration was repaired in the usual fashion using 2-0 Vicryl and 2-0 chromic. Hemostasis was achieved. Lap x5 correct, 4 x 4 x 10 correct, to sharps. Epidural analgesia. . Mom and stable to recovery. Baby 1: gender: Male Presentation: vertex Position: Left Occiput Anterior Placenta delivery description: Spontaneous Cord Vessel Description: 3 Vessels score (1 min): 9 score (5 min): 9 weight: 7 lb 12.4 oz Plan for aftercare: Routine care
[2024-01-31] MEDS: ACETAMINOPHEN 325 MG TABLET 650 MG PO ×3 (08:26→20:33)
[2024-01-31] MEDS: IBUPROFEN 600 MG TABLET PO ×3 (08:27→20:32)
[2024-01-31] MEDS: DERMOPLAST SPRAY 20% 60 ML 1 SPRAY TOP (08:27)
[2024-01-31] MEDS: WITCH HAZEL/GLYCERIN PADS 1 EACH TOP (08:28)
[2024-02-01] MEDS: IBUPROFEN 600 MG TABLET PO (06:07)
[2024-02-01] MEDS: ACETAMINOPHEN 325 MG TABLET 650 MG PO (06:07)
[2024-02-01 06:24] LABS: Add Manual Diff / Slide Review NO; Basophils Absolute Auto 100 /uL (0-100); Basophils Percent Auto 0.7 % (0-2); Eosinophils Absolute Auto 300 /uL (0-450); Eosinophils Percent Auto 2.9 % (2-4); Hematocrit 27.7 % (36-46); Hemoglobin 9.6 g/dL (12.0-16.0); Lymphocytes Absolute Auto 1600 /uL (1100-4500); Lymphocytes Percent Auto 13.9 % (25-40); Mean Corpuscular HGB Conc 34.7 % (30-36); Mean Corpuscular Hemoglobin 30.5 PG (26-34); Mean Corpuscular Volume 87.9 fL (80-100); Monocytes Absolute Auto 1000 /uL (0-900); Monocytes Percent Auto 8.5 % (3-14); Neutrophils Absolute Auto 8400 /uL (1500-7000); Platelet Count 196 X10^3/uL (150-400); Red Blood Cell Count 3.15 X10^6/uL (4.0-5.2); Red Cell Distribution Width 14.3 % (11.6-14.8); White Blood Cell Count 11.3 X10^3/uL (4.5-11.0)
[2024-02-01] MEDS: DOCUSATE 100 MG CAPSULE PO (08:09)
--- NOTE | 2024-02-01 09:21 | P.DS_ITS ---
Discharge Providers Provider Date of admission: 01/30/24 14:44 Discharge Date: 02/01/24 Primary care physician: Doctor Lionel MD Consults: 01/30/24 17:19 Consult to Anesthesiology Urgent Comment: Consulting Provider: Anesthesiologist Reason for consultation: Epidural 02/01/24 06:19 Consult to Welder Fitter Helper Routine Comment: Discharge provider: Esperanza Rojas MD Summary Hospital Course Date Patient Seen: 02/01/24 Time Patient Seen: 09:21 Diagnoses: 38+ 1 week's gestation Prodromal early labor Spontaneous vaginal delivery Pitocin augmentation of labor Artificial rupture of membranes Epidural analgesia GBS positive Second-degree perineal/vaginal laceration Hospital Course: Patient is a 28-year-old 4 para 2 who presented on January 30, 2024 in early prodromal labor. She progressed slowly from 3-4 cm. She was admitted and received an epidural for pain management. She was group B strep positive and after her second dose of antibiotics, artificial rupture membranes was performed with copious clear amniotic fluid. She progressed to complete dilation and had a spontaneous vaginal delivery without complication. She had a second-degree vaginal/perineal laceration which was repaired. Her course was unremarkable. On day # 1 she was discharged home. Peripartum Data Delivery Method: Natural Vaginal Laceration Description: Perineal - 2nd Degree and Vaginal - 2nd Degree Episiotomy description: None Procedures: Epidural analgesia Artificial rupture of membranes Group B strep IV antibiotic prophylaxis Spontaneous vaginal delivery Second-degree perineal/vaginal laceration repair complications: none [place] 1: Gender: Male Disposition of : home Status at Discharge Cognitive/behavioral status at discharge: oriented Functional status at discharge: independent ambulation Overall status at discharge: patient is progressing back to baseline Time Spent with Patient Time attestation: Total time spent providing and/or coordinating discharge services: Time spent: Less than 30 minutes Objective Labs 02/01/24 06:17 01/30/24 17:16 Labs: Laboratory Results - last 24 hr 02/01/24 06:17 WBC 11.3 H D RBC 3.15 L Hgb 9.6 L Hct 27.7 L MCV 87.9 MCH 30.5 MCHC 34.7 RDW 14.3 Plt Count 196 Neut % (Auto) 74.0 Lymph % (Auto) 13.9 L [place] % (Auto) 8.5 Eos % (Auto) 2.9 Baso % (Auto) 0.7 Neut # (Auto) 8400 H Lymph # (Auto) 1600 [place] # (Auto) 1000 H Eos # (Auto) 300 Baso # (Auto) 100 Exam Narrative Exam Narrative: Generally: Patient is sitting up in bed, holding infant, no acute distress Fundus: Firm at U -1 Extremities: Negative [place], trace edema Discharge Plan Discharge Plan Patient Disposition: Home Provider Discharge Comment: Call with fever, chills, or bleeding vaginally more than a pad hour Ibuprofen 600 mg every 6 hours as needed for cramping Tylenol 650 mg every 6 hours as needed Continue vitamins Push oral fluids Discharge orders & Medications Prescriptions: Continued Classic 28 mg iron- 800 mcg tablet PO DAILY hydrocortisone [Anusol-HC] 2.5 % cream with perineal applicator 1 applic ME BID-QID PRN (Reason: hemorrhoids) Qty: 30 1RF Discontinued promethazine 12.5 mg suppository 12.5 mg ME Q6H PRN (Reason: nausea and vomiting) Qty: 12 3RF metoclopramide HCl 10 mg tablet 10 mg PO Q6H PRN (Reason: for nausea/vomiting) Qty: 30 6RF RSVPreF3 antigen-AS01E (PF) 120 mcg/0.5 mL suspension for reconstitution 0.5 ml IM ONCE Qty: 1 0RF ondansetron 4 mg tablet,disintegrating 4 mg PO Q8H PRN (Reason: nausea and vomiting) Qty: 20 1RF promethazine 12.5 mg tablet 12.5 mg PO Q6H PRN (Reason: nausea and vomiting) Qty: 20 1RF aspirin [Adult Aspirin Regimen] 81 mg tablet,delayed release (DR/EC) 81 mg PO DAILY Follow up/Referrals: Esperanza Rojas MD [Physician] - (6 week follow-up with Dr. Sandoval) Diet/Activity/Treatments Diet: Regular Activity: Nothing in the vagina for 6 weeks Skin/Wound/Dressing Care Report to your healthcare provider any signs of infection, such as:: chills, fever, increased pain and unusual drainage Visit Report/Discharge Packet Instructions: DI for Labor and Delivery, Vaginal Stand Alone Forms: Discharge: Care, Patient Portal/API Discharge Data Primary Care Provider: Miscellaneous,Doctor
== END 2024-02-01 13:28 | disposition home or self-care (01) | DRG 807 ==
PROVIDERS: Admitting Provider Obstetrics & Gynecology; Referring Provider Obstetrics & Gynecology; Visit Provider Obstetrics & Gynecology
DX: O99.824 Streptococcus B carrier state complicating childbirth (principal); Z37.0 Single live birth; Z3A.38 38 weeks gestation of pregnancy; O70.1 Second degree perineal laceration during delivery
CPT/HCPCS: 36415; 59050; 80053; 85007; 85025; 86850; 86900; 86901; G0379; J0136; J0290; J2590

== ENCOUNTER → 2024-12-26 13:32 | Outpatient (CLI) | payer OTHER, SELFPAY ==
[2024-12-26 15:04] LABS: Urine N gonorrhoeae NOT DETECTED
[2024-12-26 16:39] LABS: Urine Chlamydia NOT DETECTED
== END ==
PROVIDERS: PCP Family Medicine; Visit Provider Obstetrics & Gynecology
DX: Z34.02 Encounter for supervision of normal first pregnancy, second trimester (principal); Z3A.08 8 weeks gestation of pregnancy
CPT/HCPCS: 87491; 87591

== ENCOUNTER → 2025-01-27 08:31 | Outpatient (CLI) | payer OTHER, SELFPAY ==
[2025-01-27 09:04] LABS: Add Manual Diff / Slide Review NO; Hematocrit 37.6 % (36-46); Hemoglobin 13.2 g/dL (12.0-16.0); Lymphocytes Absolute Auto 1300 /uL (1100-4500); Mean Corpuscular HGB Conc 35.1 % (30-36); Mean Corpuscular Hemoglobin 30.5 PG (26-34); Mean Corpuscular Volume 87.0 fL (80-100); Platelet Count 246 X10^3/uL (150-400)
[2025-01-27 09:37] LABS: Natera Collection Specimen Collected
[2025-01-27 09:59] LABS: Hepatitis B Surface Antigen NEGATIVE s/c (NEGATIVE)
[2025-01-27 10:14] LABS: HIV 1 & 2 Ab/Ag 4th Gen Combo NEGATIVE (NEGATIVE); Hep C Virus Ab w/Reflex Quant NEGATIVE s/c (NEGATIVE)
== END ==
PROVIDERS: Obstetrics & Gynecology; PCP Family Medicine; Referring Provider Family Medicine; Visit Provider Obstetrics & Gynecology
DX: O09.899 Supervision of other high risk pregnancies, unspecified trimester (principal)
CPT/HCPCS: 36415; 80055; 86787; 86803; 86850; 86900; 86901; 87389

== ENCOUNTER → 2025-02-24 09:25 | Outpatient (CLI) | payer OTHER, SELFPAY ==
[2025-02-24 13:38] LABS: Appearance Urine UA CLEAR; Bilirubin Urine UA NEGATIVE (NEGATIVE); Color Urine UA YELLOW; Glucose Urine UA NEGATIVE (Negative); Ketones Urine UA NEGATIVE (NEGATIVE); Leukocyte Esterase Urine UA TRACE (NEGATIVE); Nitrite Urine UA NEGATIVE (Negative); Occult Blood Urine UA NEGATIVE (Negative); Protein Urine UA NEGATIVE (Negative); Specific Gravity Urine UA <=1.005 (1.000-1.035); Urobilinogen Urine UA 0.2 E.U./dL (0.2)
[2025-02-24 13:39] LABS: pH Urine UA 7.0 (4.5-8.0)
== END ==
PROVIDERS: PCP Family Medicine; Referring Provider Obstetrics & Gynecology; Visit Provider Obstetrics & Gynecology
DX: O09.899 Supervision of other high risk pregnancies, unspecified trimester (principal); Z36.0 Encounter for antenatal screening for chromosomal anomalies
CPT/HCPCS: 36415; 81003; 81015; 82105; 87077; 87086; 87147

== ENCOUNTER → 2025-04-03 12:01 | Outpatient (CLI) | payer OTHER, SELFPAY ==
--- NOTE | 2025-04-03 12:02 | DI.US.S_ITS ---
PROCEDURE: US OB >= 14 WEEKS FETUS
== END ==
PROVIDERS: PCP Family Medicine; Referring Provider Family Medicine; Visit Provider Emergency Medicine
DX: Z34.82 Encounter for supervision of other normal pregnancy, second trimester (principal); Z3A.21 21 weeks gestation of pregnancy
CPT/HCPCS: 76811

== ENCOUNTER → 2025-05-03 08:28 | Outpatient (CLI) | payer OTHER, SELFPAY ==
[2025-05-03 09:50] LABS: Hematocrit 35.1 % (36-46); Hemoglobin 12.5 g/dL (12.0-16.0)
[2025-05-03 10:43] LABS: GTT (PREG) 1 Hour PP 50gm Dose 107 mg/dL (76-139)
== END ==
PROVIDERS: PCP Family Medicine; Referring Provider Obstetrics & Gynecology; Visit Provider Obstetrics & Gynecology
DX: Z13.0 Encounter for screening for diseases of the blood and blood-forming organs and certain disorders involving the immune mechanism (principal); Z13.1 Encounter for screening for diabetes mellitus
CPT/HCPCS: 36415; 82950; 85014; 85018